=== PATIENT | female | born 1930 | race Caucasian/White ===

== ENCOUNTER → 2017-08-16 | Outpatient (REF) | payer MEDICARE ==
[2016-07-06 12:40] VITALS: BMI 24.3
[~2017-08-16] MED LIST: ACET-1966 PO; AMLO-39 PO; AMLO-96 PO; AMOX-559 PO; ASPI81TA86 PO; CHLO12TA PO; CLON-327 PO; CRAN425C8 PO; CYCL-277 PO; DIA5 PO; ESC10 PO; FLUT16SP19; HYDR12.558 PO; MOM PO; OLM20 PO; OLME40TA28 PO; ONDA4TAB PO; PANT40TA65 PO; POLY17PO21 PO; POTA20TA94 PO; SACC250C PO; SIMV10TA98 PO; TAMS0.4C70 PO; TRAM-420 PO; VERA200C8 PO
== END ==
LOC: ZZSENDIN 09:45
PROVIDERS: ATTEND Family Medicine
DX: N39.0 Urinary tract infection, site not specified (principal)
CPT/HCPCS: 81001; 87088

== ENCOUNTER → 2017-08-21 | Outpatient (REF) | payer MEDICARE ==
[2016-07-06 12:40] VITALS: BMI 24.3
== END ==
LOC: ZZSENDIN 17:05
PROVIDERS: ATTEND Family Medicine
DX: R41.82 Altered mental status, unspecified (principal)
CPT/HCPCS: 81001; 87088

== ENCOUNTER → 2018-08-06 | Outpatient (CLI) | payer MEDICARE ==
[2016-07-06 12:40] VITALS: BMI 24.3
[~2018-08-06] MED LIST changes: +AMLO-125 PO; -AMLO-96 PO; +POLY17PO11 PO; -POLY17PO21 PO
--- NOTE | 2018-08-06 17:34 | RADIOLOGY IMAGING REPORT ---
FACILITY: [facility] PATIENT NAME: Meeta Osuna : 1930 MR: [id number] V: [id number] EXAM DATE: ORDERING PHYSICIAN: EFFIE AU TECHNOLOGIST: Location: [facility] [place] Patient: Meeta Osuna : 1930 Visit/Account:[id number] Date of Sevice: 08/06/2018 EXAMINATION: PA and Lateral Chest 08/06/2018 2:55 PM HISTORY: Cough. Sounds of fluids in the lungs. COMPARISON: 06/17/2016 FINDINGS: Cardiomediastinal contours: Stable heart size. Aorta is atherosclerotic. Lungs and pleura: Lung volumes are low with linear markings in both bases more suggestive of atelecta sis. No substantial pulmonary edema evident. No significant effusions. Bones/soft tissues: Mild scoliotic curvature. Accentuation of thoracolumbar kyphotic curvature. IMPRESSION: Low lung volumes and bibasilar markings most suggestive of atelectasis or scarring. No o ther significant acute finding. Report Dictated By: Jose M Jernigan MD at 08/06/2018 5:29 PM Report E-Signed By: Jose M Jernigan MD at 08/06/2018 5:31 PM WSN:[email or web address]
== END ==
LOC: RAD 14:51
PROVIDERS: ATTEND Family Medicine
DX: J98.11 Atelectasis (principal)
CPT/HCPCS: 71046